=== PATIENT | male | born 1945 | race Caucasian/White ===

== ENCOUNTER 2017-09-28 05:56 | Day surgery (SDC) | payer SELFPAY ==
[2017-08-01 08:07] VITALS: BMI 35.0
[2017-09-28] MEDS ORDERED: Tropicamide 0.5% Opht Sol OD SCH (06:00)
[2017-09-28] MEDS ORDERED: Lactated Ringer's 500 ML IV ONE ×2 (06:00→07:10)
[2017-09-28] MEDS ORDERED: Phenylephrine 2.5% Opht Soln OD SCH (06:00)
[2017-09-28] MEDS ORDERED: Tetracaine 0.5% Ophth (OR ONLY) ONE (07:24)
[2017-09-28] MEDS ORDERED: Carbachol 0.01% IO ONE (07:24)
[2017-09-28] MEDS ORDERED: Tobramycin/Dexamethasone OPHT OINT ONE (07:24)
[2017-09-28] MEDS ORDERED: Povidone Iodine Ophthalmic 5% Soln ONE (07:24)
[2017-09-28] MEDS ORDERED: Lidocaine 2% MPF (5 ml) Inj ONE (07:25)
[2017-09-28] MEDS ORDERED: Hyaluronidase Human, Recombi 150 U/ML VIAL ONE (07:25)
[2017-09-28] MEDS ORDERED: Chondroitin/Hyaluronate Opth Syringe KIT (0.55 ml-0.5 ml) IO ONE (07:25)
[2017-09-28] MEDS ORDERED: Midazolam 2 MG/2 ML VIAL ONE (08:41)
[2017-09-28 11:05] VITALS: BP 122/65; PULSE 53; RESP 20; TEMP 97.7; O2SAT 100
--- NOTE | 2017-09-28 19:10 | OP ---
Copied To: Chato Hooper MD Attending MD: Chato Hooper MD PROCEDURE DATE: 09/28/2017 PREOPERATIVE DIAGNOSIS: Matured nuclear cataract, right eye. POSTOPERATIVE DIAGNOSIS: Matured nuclear cataract, right eye. OPERATIVE PROCEDURE: Cataract extraction with lens implant, right eye. SURGEON: Chato Hooper MD ANESTHESIA: Retrobulbar block. COMPLICATIONS: None. ESTIMATED BLOOD LOSS: Zero. DESCRIPTION OF PROCEDURE: The patient was brought to the operating room and properly identified. Anesthesia staff administered intravenous sedation and retrobulbar block was given to the surgical eye. The patient was then prepped and draped in the usual sterile fashion. Attention was turned to the surgical eye. A lid speculum was placed into interpalpebral fissure. Sitting temporally, two paracentesis incisions were made. The anterior chamber was filled with viscoelastic and a triplanar clear corneal incision was made. Using a cystitome, anterior capsular leaflet was created. Utrata forceps were used to create a continuous curvilinear capsulorrhexis. Balanced salt solution on a cannula was used to hydrodissect and hydrodelineate the lens. The lens was then phacoemulsified with no complications. Automated irrigation and aspiration was used to remove the cortex. Viscoelastic was used to deepen the anterior chamber. The lens was placed in the capsular bag. Automated irrigation and aspiration was used to remove the viscoelastic. The anterior chamber was filled with Miochol. The wounds were hydrated with balanced salt solution. There was noted to be no leak at the end of the case and the lens was well positioned. The lid speculum was removed. The eye was given antibiotics and steroids and covered with a patch and shield. The patient was returned to the recovery room in stable condition. Chato Hooper MD
== END 2017-09-28 09:48 | disposition home or self-care (01) ==
LOC: C.SDS 05:56
PROVIDERS: ATTEND Ophthalmology
DX: H26.9 Unspecified cataract (principal)
CPT/HCPCS: 66984; J2250; J3010; J3470; J7120

== ENCOUNTER 2017-09-30 10:53 | Emergency (ER) | payer SELFPAY ==
[2017-09-30 10:58] VITALS: BMI 31.9
[2017-09-30 11:10] VITALS: BP 143/78; PULSE 87; RESP 18; TEMP 98.8; O2SAT 97
--- NOTE | 2017-09-30 11:46 | C.PDOC ---
History Of Present Illness 72 y/o male presents to ed 1 day s/p right eye surgery for cataract/implant. pt was given rxs for besivance and durezol and reports he is unable to fill these prescriptions due to cost and requests less expensive medications. no other complaints. Time Seen by Provider: 09/30/17 11:23 Chief Complaint (Nursing): Eye Problem History Per: Patient History/Exam Limitations: no limitations Onset/Duration Of Symptoms: Days (1) Current Symptoms Are (Timing): Still Present Injury To Eye?: No Severity: Mild Wears Contact Lens?: No Past Medical History Reviewed: Historical Data, Nursing Documentation, Vital Signs Vital Signs: Last Vital Signs Temp 98.8 F 09/30/17 11:17 Pulse 87 09/30/17 11:17 Resp 18 09/30/17 11:17 BP 143/78 09/30/17 11:17 Pulse Ox 97 09/30/17 12:22 - Medical History PMH: HTN, Hypercholesterolemia Denies: Chronic Kidney Disease Surgical History: Cholecystectomy Other Surgeries: right eye cataract 09/29/17 Family History: States: Unknown Family Hx - Social History Hx Alcohol Use: No Hx Substance Use: No - Immunization History Hx Tetanus Toxoid Vaccination: No Hx Influenza Vaccination: No Hx Pneumococcal Vaccination: No Review Of Systems Constitutional: Negative for: Fever, Chills Eyes: Positive for: Pain (minimal post op yesterday), Conjunctivae Inflammation. 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 medications ordered in the ER , pt given first dose here and will take home bottles. Explained to patient in detail the substitutions and dosages. pt to f/u with Dr Hooper on 10/06 as scheduled Disposition Discussed With : cici Counseled Patient/Family Regarding: Diagnosis, Need For Followup, Rx Given - Disposition Referrals: Chato Hooper [Staff Provider] - Disposition: HOME/ ROUTINE Disposition Time: 11:47 Condition: GOOD Additional Instructions: 312/5000 Utilice 1) prednisolona bob gota en el manuel derecho vladimir veces al da 2) ocu[place] bob gota en el manuel derecho vladmiir veces al da 3) Bromsite bob gota en el manuel derecho bob vez al da Dimitri un seguimiento con el Dr. Hooper el 10/06 segn lo programado. Regrese a la carlyle de emergencias para cualquier problema o inquietud que empeore Please use 1) prednisolone one drop into right eye three times a day 2) ocufloxacin one drop in to right eye three times a day 3) Bromsite one drop into right eye one time a day Follow up wiht Dr Hooper on 10/06 as scheduled. Return to ER for any worsening symptms or concerns. Forms: Gen Discharge Inst Stat[facility], [facility] (Stateless) Print Language: LAO - Clinical Impression Clinical Impression: Medication refill
[2017-09-30] MEDS ORDERED: PrednisoLONE 1% Opht Susp(5 ml) OD STA (11:53)
[2017-09-30] MEDS ORDERED: Ofloxacin 0.3% Ophth Soln OD STA (11:54)
== END 2017-09-30 12:34 | disposition home or self-care (01) ==
LOC: C.ER 10:53
DX: Z76.0 Encounter for issue of repeat prescription (principal); E78.00 Pure hypercholesterolemia, unspecified; I10 Essential (primary) hypertension

== ENCOUNTER 2018-05-31 07:14 | Outpatient (CLI) | payer SELFPAY | END 2018-05-31 07:15 | disposition home or self-care (01) | LOC: C.CARD 07:14 | DX: R60.0 Localized edema (principal) ==